=== PATIENT | male | born 1945 | race Caucasian/White ===

== ENCOUNTER 2016-10-08 17:15 | Observation (INO) | payer MEDICARE ==
[2016-10-08 17:15] VITALS: BMI 24.8
[2016-10-08] MEDS ORDERED: Sodium Chloride 0.9% 1,000 ML IV STA (18:01)
[2016-10-08 18:47] LABS: ALB/GLOB RATIO 1.3 (1.1-1.8); ALBUMIN 4.1 g/dL (3.0-4.8); ALT/SGPT 29 U/L (7-56); AST/SGOT 32 U/L (15-59); BLOOD UREA NITROGEN 19 mg/dL (7-21); CALCIUM 9.3 mg/dL (8.4-10.5); GFR AFRICAN-AMERICAN > 60; GFR NON-AFRICAN AMERICAN > 60; LIPASE 63 U/L (23-300)
[2016-10-08 19:12] LABS: BASO # 0.03 K/mm3 (0.0-2.0); BASO % 0.5 % (0.0-3.0); EOS # 0.2 (0.0-0.7); EOS % 2.6 % (1.5-5.0); GRAN % 64.4 % (50.0-68.0); HEMOGLOBIN 13.4 gm/dL (14.0-18.0); LYMPH # 1.4 (1.2-3.4); LYMPH % 22.4 % (22.0-35.0); MEAN CORPUSCULAR HEMOGLOBIN 29.3 pg (25.0-35.0); MEAN CORPUSCULAR HGB CONC 34.1 g/dl (31.0-37.0); MEAN PLATELET VOLUME 9.3 fl (7.0-11.0); MONO # 0.6 (0.1-0.6); MONO % 10.1 % (1.0-6.0); PLATELET COUNT 265 10^3/uL (120.0-450.0); RBC 4.57 10^6/uL (3.5-6.1); WHITE BLOOD COUNT 6.1 10^3/ul (4.5-11.0)
[2016-10-08] MEDS ORDERED: Iohexol 350 MG/100 ML VIAL ONE (19:58)
--- NOTE | 2016-10-08 20:19 | ED PDOC ---
Arrival/HPI - General Chief Complaint: Abdominal Pain Time Seen by Provider: 10/08/16 17:17 Historian: Patient - History of Present Illness Narrative History of Present Illness (Text): 10/08/16 18:02 Larissa Pardo is a 71 year old male, with a history of hypertension, and hyperlipidemia, presents to the emergency department complaining of 3 day duration of abdominal pain associated with nausea for past 3 days. States that pain is worse in RLQ. Denies any fever, chills, headache, dizziness, chest pain , shortness of breath, vomiting, diarrhea, urinary symptoms, or any other complaints at this time. Patient was offered translation but he deferred because he says he speaks [place]. Time/Duration: Other (3 days ) Symptom Onset: Gradual Severity Level: Mild Activities at Onset: Light Past Medical History - Provider Review Nursing Documentation Reviewed: Yes - Infectious Disease Hx of Infectious Diseases: None - Cardiac Hx Hypertension: Yes Hx Pacemaker: No - Neurological Hx Paralysis: No - Hematological/Oncological Hx Blood Transfusions: No Hx Blood Transfusion Reaction: No - Musculoskeletal/Rheumatological Hx Musculoskeletal Disorders: No - Psychiatric Hx Emotional Abuse: No Hx Physical Abuse: No Hx Substance Use: No - Surgical History Other/Comment: fady inguinal repair - Anesthesia Hx Anesthesia: Yes Hx Anesthesia Reactions: No Hx Malignant Hyperthermia: No - Suicidal Assessment Feels Threatened In Home Enviroment: No Family/Social History - Physician Review Nursing Documentation Reviewed: Yes Family/Social History: No Known Family HX Smoking Status: Never Smoked Hx Alcohol Use: No Hx Substance Use: No Allergies/Home Meds Allergies/Adverse Reactions: Allergies No Known Allergies Allergy (Verified 10/08/16 17:33) Home Medications: Home Meds Medication Instructions Recorded Confirmed Amlodipine Besylate 10 mg PO DAILY 10/24/12 10/08/16 Review of Systems - Physician Review All systems were reviewed & negative as marked: Yes - Review of Systems Constitutional: Normal. absent: Fatigue, Fevers Respiratory: Normal. absent: SOB, Cough, Sputum Cardiovascular: Normal. absent: Chest Pain, Palpitations Gastrointestinal: Abdominal Pain (RLQ ), Nausea. absent: Diarrhea, Vomiting Neurological: Normal. absent: Headache, Dizziness Psychiatric: Normal Physical Exam Vital Signs Reviewed: Yes Vital Signs Temp Pulse Resp BP Pulse Ox 10/08/16 22:26 99.4 F 75 17 150/88 98 10/08/16 20:52 78 16 134/77 100 10/08/16 19:53 99.5 F 77 18 133/78 98 10/08/16 17:54 98.9 F 82 16 98 10/08/16 17:27 98.9 F 84 9 L 137/82 98 Temperature: Afebrile Blood Pressure: Normal Pulse: Regular Respiratory Rate: Normal Appearance: Positive for: Well-Appearing, Non-Toxic, Comfortable Pain Distress: None Mental Status: Positive for: Alert and Oriented X 3 - Systems Exam Head: Present: Atraumatic, Normocephalic Pupils: Present: PERRL Conjunctiva: Present: Normal Mouth: Present: Moist Mucous Membranes Respiratory/Chest: Present: Clear to Auscultation, Good Air Exchange. No: Respiratory Distress, Accessory Muscle Use Cardiovascular: Present: Regular Rate and Rhythm, Normal S1, S2. No: Murmurs Abdomen: Present: Tenderness (RLQ tenderness ), Normal Bowel Sounds. No: Distention, Peritoneal Signs, Rebound, Guarding, McBurney's Point Tender Upper Extremity: Present: Normal Inspection. No: Cyanosis, Edema Lower Extremity: Present: Normal Inspection. No: Edema Neurological: Present: GCS=15, CN II-XII Intact, Speech Normal, Motor Func Grossly Intact, Normal Sensory Function Skin: Present: Warm, Dry, Normal Color. No: Rashes Psychiatric: Present: Alert, Oriented x 3, Normal Insight, Normal Concentration Medical Decision Making ED Course and Treatment: 10/08/16 18:09 Impression: A 71 year old male who presents to the emergency department complaining of RLQ abd pain for past 3 days. Differential Diagnosis included but are not limited to: Abdominal pain r/o appendicitis. Plan: -- CT abdomen pelvis -- Toradol -- IV fluids -- Labs -- Reassess and disposition Progress Notes: - Medication Orders Current Medication Orders: Sodium Chloride (Sodium Chloride 0.9%) 1,000 mls @ 100 mls/hr IV .Q10H STA Stop: 10/09/16 04:00 Last Admin: 10/08/16 18:19 Dose: 100 mls/hr Discontinued Medications Iohexol (Omnipaque 350 100 Ml) Confirm Administered Dose 350 mg .ROUTE .STK-MED ONE Stop: 10/08/16 19:59 Ketorolac Tromethamine (Toradol) 30 mg IVP STAT STA Stop: 10/08/16 18:02 Last Admin: 10/08/16 18:23 Dose: 30 mg Tamsulosin HCl (Flomax) 0.4 mg PO STAT STA Stop: 10/08/16 22:02 Last Admin: 10/08/16 22:31 Dose: 0.4 mg ED OBSERVATION Date of observation admission: 10/08/16 Time of observation admission: 18:05 - Observation admission statement Patient is being placed in observation because:: Abdominal pain - Goals of Observation Goals of observation are:: Pending CT scan, labs, reevaluation and disposition - Progress Note Progress Note: 10/08/16 20:05 Patient is resting comfortably with stable vitals. 10/08/16 21:48 [facility] Preliminary Radiology Report Call: [phone] assistance Online chat: [email or web address] Patient Name: LARISSA PARDO EXAM: CT Abdomen and Pelvis With Intravenous Contrast IMPRESSION: 1. 4 mm calculus is noted in the UV junction on the right causing right mild hydro-nephrosis and right mild hydroureter. There is perinephric infiltration of fat on the right. There is delayed nephrogram on the right. 2. There is a 3.6 cm lesion in the left lobe of the liver. Suspicious for a solid lesion. There is an enhancing 2.5 cm lesion in the right lobe of the liver. Dedicated imaging is advised for further characterization. Thank you for allowing us to participate in the care of your patient. Dictated and Authenticated by: Mara Whipple MD 10/08/2016 9:39 PM Eastern Time ([place] & [place]) 10/08/16 22:01 Patient feels better. UA pending. CT reveiwed and discussed with patient. Patient states he knew about the liver mass. He still says he will f/u with a GI specialist, Dr. Cornell. He will also f/u with a Urologist, Dr. Kamara. 10/08/16 23:01 UA negative. Patient will f/u with specialist as above. Also f/u with PMD in 2- 3days. Disposition/Present on Arrival - Present on Arrival Any Indicators Present on Arrival: No History of DVT/PE: No History of Uncontrolled Diabetes: No Urinary Catheter: No History of Decub. Ulcer: No History Surgical Site Infection Following: None - Disposition Have Diagnosis and Disposition been Completed?: Yes Diagnosis: Renal colic, Liver lesion Disposition Time: 21:51 Patient Plan: Discharge, Observation Patient Problems: Current Active Problems Problem Status Onset Renal colic Acute Liver lesion Acute Condition: IMPROVED
[2016-10-08 22:28] VITALS: BP 150/88; PULSE 75; TEMP 99.4
[2016-10-08 22:28] LABS: PH,URINE 7.5 (4.7-8.0); URINE BILIRUBIN NEGATIVE (NEGATIVE); URINE BLOOD MODERATE (NEGATIVE); URINE GLUCOSE (UA) NEGATIVE (NEGATIVE); URINE LEUKOCYTE ESTERASE NEGATIVE Leu/uL (NEGATIVE); URINE NITRATE NEGATIVE (NEGATIVE); URINE PROTEIN NEGATIVE mg/dL (<30 mg/dL); URINE UROBILINOGEN 0.2 E.U./dL (<1 E.U./dL)
[2016-10-08 22:33] LABS: URINE APPEARANCE CLEAR (CLEAR)
[2016-10-08 23:00] LABS: URINE BACTERIA FEW (NEG); URINE COLOR STRAW (YELLOW); URINE EPITHELIAL CELLS 0 - 2 /hpf (0-5); URINE WBC 0 - 2 /hpf (0-6)
[2016-10-08 23:19] VITALS: RESP 18; O2SAT 99
--- NOTE | 2016-10-09 08:12 | CT ---
PROCEDURE: CT Abdomen and Pelvis with contrast HISTORY: Right lower quadrant abdominal pain. Appendicitis suspected. COMPARISON: None. TECHNIQUE: Contrast dose: 100 cc Omnipaque 350 Radiation dose: Total exam DLP = 728.39 mGy-cm. This CT exam was performed using one or more of the following dose reduction techniques: Automated exposure control, adjustment of the mA and/or kV according to patient size, and/or use of iterative reconstruction technique. FINDINGS: LOWER THORAX: Unremarkable. LIVER: Contrast-enhancing characteristics of "Flash" hemangioma right hepatic lobe. Peripheral enhancement of the mass in the left lobe measuring 2.8 x 3.6 cm likely but not diagnostic of more typical hemangioma GALLBLADDER AND BILE DUCTS: Unremarkable. PANCREAS: Unremarkable. No gross lesion or ductal dilatation. SPLEEN: Unremarkable. ADRENALS: Unremarkable. No mass. KIDNEYS AND URETERS: Unilateral, right obstructive uropathy related to recently passed 4 mm calculus now residing in the urinary bladder adjacent to the right ureterovesical junction. The right kidney is edematous. The right ureter is dilated in its entirety. Unremarkable left kidney. Incidental finding(s): Bilateral simple renal cysts. Rodri VASCULATURE: Unremarkable. No aortic aneurysm. BOWEL: Constipation without fecal impaction or obstruction. Diverticulosis without an acute inflammatory component or other associated pathologic process. APPENDIX: Normal appendix. PERITONEUM: Unremarkable. No free fluid. No free air. LYMPH NODES: Unremarkable. No enlarged lymph nodes. BLADDER: Unremarkable. REPRODUCTIVE: Unremarkable. BONES: No acute fracture. OTHER FINDINGS: None. IMPRESSION: Dilated right ureter and collecting system related to recently passed 4 mm calculus now residing in the urinary bladder. Indeterminate, likely benign masses in the liver. Followup however advised. Concordant results (preliminary interpretation) provided by [facility]. Procedure Completed: 20:37 Preliminary ([facility]) Report: Dictated and Authenticated: 21:39. Final Interpretation: 08:10. October 09, 2016.
== END 2016-10-08 23:01 | disposition home or self-care (01) ==
LOC: ED 17:15 → EROBSV 18:01
PROVIDERS: ADMIT Emergency Medicine; ATTEND Emergency Medicine
DX: K76.9 Liver disease, unspecified (principal); N20.0 Calculus of kidney; I10 Essential (primary) hypertension
CPT/HCPCS: 74177; 80053; 81001; 83690; 85025; 96374; 99283; G0378; J1885; J7040; Q9967

== ENCOUNTER 2018-05-15 09:46 | Outpatient (CLI) | payer MEDICARE | END 2018-05-15 09:47 | disposition home or self-care (01) | LOC: LAB 09:46 ==

== ENCOUNTER 2018-07-10 08:41 | Outpatient (CLI) | payer OTHER | END 2018-07-10 08:42 | disposition home or self-care (01) | LOC: LAB 08:41 ==